=== PATIENT | female | born 1960 | race Caucasian/White ===

== ENCOUNTER → 2017-11-02 | Outpatient (CLI) | payer OTHER ==
--- NOTE | 2017-11-08 10:09 | MM ---
Reason for exam: screening (asymptomatic). History: Patient is postmenopausal, has history of other cancer at age 39, and is nulliparous. Family history of breast cancer in sister at age 56. Physical Findings: A clinical breast exam by your physician is recommended on an annual basis and results should be correlated with mammographic findings. MG 3D Screening Mammo W/Cad Bilateral CC and MLO view(s) were taken. No prior studies available for comparison. The breast tissue is heterogeneously dense. This may lower the sensitivity of mammography. There is no discrete abnormality. ASSESSMENT: Negative, BI-RAD 1 RECOMMENDATION: Routine screening mammogram of both breasts in 1 year.
== END | disposition home or self-care (01) ==
LOC: RADMAMWWP 14:46
PROVIDERS: ATTEND Family Medicine
DX: Z12.31 Encounter for screening mammogram for malignant neoplasm of breast (principal)
CPT/HCPCS: 77063; 77067

== ENCOUNTER 2021-03-11 09:27 | Day surgery (SDC) | payer OTHER ==
[2021-02-17 08:44] VITALS: BMI 34.9
[~2021-03-11 09:27] MED LIST: LACTATED RINGERS 1,000 ML IV SCH; LIDOCAINE 1% (10MG/ML) FOR IV START INTRADERMA PRN
[2021-03-11 10:05] VITALS: RESP 16; TEMP 97.6
[2021-03-11] MEDS ORDERED: LIDOCAINE 1% (10MG/ML) FOR IV START INTRADERMA ONE (10:05)
[2021-03-11] MEDS ORDERED: PROPOFOL 10 MG/ML 20 ML VIAL IV ONE (11:24)
--- NOTE | 2021-03-11 11:26 | P.GSHP ---
History of Present Illness H&P Date: 03/11/21 Chief Complaint: History of colon polyps 's is a 60-year-old female who presents today for colonoscopy. Patient's previous history of colon polyps. Past Medical History Past Medical History: Cancer, COPD, GERD/Reflux, Hyperlipidemia, Osteoarthritis (OA), Skin Disorder Additional Past Medical History / Comment(s): Squamous cell SKIN CANCER, KIDNEY STONES, psoriasis, hx ulcer, "bad disc in back." History of Any Multi-Drug Resistant Organisms: None Reported Past Surgical History: Bowel Resection, Hysterectomy, Joint Replacement, Tonsillectomy Additional Past Surgical History / Comment(s): TOTAL RIGHT KNEE REPLACEMENT, ONE TONSIL REMOVAL, BOWEL RESECTION FOR LARGE POLYP, COLONOSCOPY. Past Anesthesia/Blood Transfusion Reactions: No Reported Reaction Past Psychological History: Anxiety Smoking Status: Current every day smoker Past Alcohol Use History: Rare Additional Past Alcohol Use History / Comment(s): STARTED SMOKING AT 15, SMOKES 1 1/2-2 PACKS PER DAY. Past Drug Use History: Marijuana Additional Drug Use History / Comment(s): USES MARIJUANA DAILY-INSTRUCTED TO REFRAIN FROM USE FOR AT LEAST 24 HOURS PRIOR TO PROCEDURE. - Past Family History Sister(s) Family Medical History: Cancer Father Family Medical History: Cancer Additional Family Medical History / Comment(s): LYMPHOMA. Medications and Allergies Home Medications Medication Instructions Recorded Confirmed Type No Known Home Medications 02/17/21 03/11/21 History Allergies Allergy/AdvReac Type Severity Reaction Status Date / Time Sulfa (Sulfonamide Allergy "PAIN IN Verified 03/11/21 10:00 Antibiotics) FEET" Surgical - Exam Vital Signs Temp Pulse Resp BP Pulse Ox 97.6 F 85 16 144/74 97 03/11/21 10:03 03/11/21 10:03 03/11/21 10:03 03/11/21 10:03 03/11/21 10:03 - General well developed, well nourished, no distress - Eyes PERRL - ENT normal pinna - Neck no masses - Respiratory normal expansion - Cardiovascular Rhythm: regular - Abdomen Abdomen: soft, non tender Assessment and Plan Assessment: History of colon polyps. We'll perform colonoscopy.
--- NOTE | 2021-03-11 11:43 | P.OP ---
Date of Procedure: 03/11/21 Preoperative Diagnosis: History of colon polyps Postoperative Diagnosis: Significant diverticulosis of left and sigmoid colon Procedure(s) Performed: Colonoscopy Anesthesia: MAC Surgeon: Marquez Bettencourt Pathology: none sent Condition: stable Disposition: PACU Description of Procedure: Patient's placed on the endoscopy table in the lateral position. She received IV sedation. Digital rectal exam was performed which revealed a few external hemorrhoids. Possible colonoscope was then placed patient anus and passed throughout the entire colon. The ileocecal valve was visualized. Cecum, ascending and transverse colon appeared normal. In the descending and sigmoid colon there is extensive diverticular changes. It was no evidence of diverticulitis. The scope was then brought back the rectum and this appeared normal. Scope withdrawn for patient.
[2021-03-11 12:19] VITALS: BP 131/87; PULSE 72
== END 2021-03-11 12:40 | disposition home or self-care (01) ==
LOC: ORWHC2ENDO 09:27
PROVIDERS: ATTEND Surgery
DX: Z12.11 Encounter for screening for malignant neoplasm of colon (principal); K57.90 Diverticulosis of intestine, part unspecified, without perforation or abscess without bleeding; E78.2 Mixed hyperlipidemia; F41.9 Anxiety disorder, unspecified; M19.90 Unspecified osteoarthritis, unspecified site; L40.9 Psoriasis, unspecified; K21.9 Gastro-esophageal reflux disease without esophagitis; J44.9 Chronic obstructive pulmonary disease, unspecified; F17.210 Nicotine dependence, cigarettes, uncomplicated; Z88.2 Allergy status to sulfonamides; Z85.828 Personal history of other malignant neoplasm of skin
CPT/HCPCS: 45378; J2704